=== PATIENT | male | born 1985 | race Caucasian/White ===

== ENCOUNTER 2016-12-23 00:56 | Emergency (ER) | payer OTHER ==
[2016-12-23] MEDS ORDERED: NORMAL SALINE 1000 ML 1,000 ML IV ONE (02:27)
--- NOTE | 2016-12-23 02:35 | ER Document Report ---
ED General - General Chief Complaint: Dizziness Stated Complaint: NECK PAIN Time Seen by Provider: 12/23/16 02:10 Notes: Patient is a 31-year-old male who presents with complaint of a myriad of symptoms. They have all started last 2 days. He says he has had some gradual intermittent headaches. They are not severe. He then has also had sensation of dry mouth and is felt numbness and tingling into both his hands. He says a little bit worse on the left versus the right. He is also noticed a pinpoint area on the left anterior neck where he is having pain. He says is only in the single area. He denies any recent neck trauma. He does drink alcohol on a daily basis but says he drinks just a few beers. He does not smoke but he does chew tobacco. He does admit he has been under a lot of stress recently. No recent fevers or infections. No recent trauma to his head or neck. The only medication he takes is Adderall. He is otherwise healthy. No other complaints at this time. TRAVEL OUTSIDE OF THE [place] IN LAST 30 DAYS: No Past Medical History - Social History Smoking Status: Never Smoker Chew tobacco use (# tins/day): Yes Frequency of alcohol use: Occasional Drug Abuse: None Family History: Reviewed & Not Pertinent Patient has suicidal ideation: No Patient has homicidal ideation: No Renal/ Medical History: Denies: Hx Peritoneal Dialysis Review of Systems - Review of Systems Notes: My Normal Review Basic REVIEW OF SYSTEMS: CONSTITUTIONAL : Denies fever, chills, or sweats. Denies recent illness. EENT: Denies eye, ear, throat, or mouth pain or symptoms. Denies nasal or sinus congestion. CARDIOVASCULAR: Mild intermittent RESPIRATORY: Denies cough, cold, or chest congestion. Denies shortness of breath, difficulty breathing, or wheezing. GASTROINTESTINAL: Denies abdominal pain. Denies nausea, vomiting, or diarrhea. Denies constipation. Last BM: MUSCULOSKELETAL: Denies neck or back pain or joint pain or swelling. SKIN: Denies rash or skin lesions. NEUROLOGICAL: Denies altered mental status or loss of consciousness. Denies headache. Denies weakness or paralysis or loss of use of either side. Denies problems with gait or speech. tingling sensation in hands. PSYCHIATRIC: Complains of increased stress. ALL OTHER SYSTEMS REVIEWED AND NEGATIVE. Physical Exam - Vital signs Vitals: Temp Pulse Resp BP Pulse Ox 99.0 F 71 16 144/80 H 99 12/23/16 01:20 12/23/16 01:20 12/23/16 01:20 12/23/16 01:20 12/23/16 01:20 - Notes Notes: General Appearance: Well nourished, alert, cooperative, no acute distress, no obvious discomfort. Appearing. Vitals: reviewed, See vital signs table. Head: no swelling or tenderness to the head Eyes: PERRL, EOMI, Conjuctiva clear Mouth: No decreasd moisture Throat: No tonsillar inflammation, No airway obstruction, No lymphadenopathy Neck: Posterior neck tenderness palpation. Patient has a small area of tenderness over the left anterior neck that is pinpoint. There is no swelling or redness to this area. Lungs: No wheezing, No rales, No rhonci, No accessory muscle use, good air exchange bilaterally. Heart: Normal rate, Regular rythm, No murmur, no rub Abdomen: Normal BS, soft, No rigidity, No abdominal tenderness, No guarding, no rebound, no abdominal masses, no organomegaly Extremities: strength 5/5 in all extremities, good pulses in all extremities, no swelling or tenderness in the extremities, no edema. Skin: warm, dry, appropriate color, no rash Neuro: speech clear, oriented x 3, normal affect, responds appropriately to questions. Cranial nerves II through XII are intact. Distal sensation intact. Patient moves all extremities without difficulty. Normal gait. Normal Romberg. Course - Re-evaluation Re-evalutation: 12/23/16 07:04 Patient's history and exam suspect are most likely related to stress. He was adamant that he wanted imaging of his neck. He has a pinpoint area over the left anterior portion of his neck that hurts. It was near the carotid artery. Performed a CT Kristi of his neck and this was negative. Patient looks well. His headache is mild and intermittent gradual onset. I do not suspect subarachnoid hemorrhage. Being that he has tingling sensation in his arms and hands as well as sensation of dry mouth and he admits she has been under a lot of stress recently think most the symptoms are related to his increasing stress load. I gave the patient a day off. I encouraged him to rest and take it easy. Encouraged him return to ER if he has worsening of his symptoms. Patient agrees with plan and will be discharged home. Patient's neurologic exam is completely normal. Dictation of this chart was performed using voice recognition software; therefore, there may be some unintended grammatical errors. - Vital Signs Vital signs: Temp Pulse Resp BP Pulse Ox 98.6 F 68 16 127/78 H 99 12/23/16 05:42 12/23/16 05:42 12/23/16 05:42 12/23/16 05:42 12/23/16 05:42 - Laboratory Result Diagrams: 12/23/16 02:55 12/23/16 02:55 Discharge - Discharge Clinical Impression: Neck pain, Paresthesias Headache Qualifiers: Headache type: unspecified Headache chronicity pattern: episodic headache Intractability: not intractable Qualified Code(s): R51 - Headache Condition: Good Disposition: HOME, SELF-CARE Additional Instructions: Your CT scan of your neck was normal. Please rest and relax over the next 24 hours. Please follow up with your doctor in 3-4 days for reevaluation. Please return to the ER immediately if you have worsening pain, fevers, vomiting, or feel that your symptoms are worsening. Forms: Return to Work Referrals: KALEIGH JOYCE MD [Primary Care Provider] - Follow up in 3-5 days
[2016-12-23 03:17] LABS: ABSOLUTE BASOPHILS # (AUTO) 0.1 10^3/uL (0.0-0.2); ABSOLUTE EOSINOPHILS # (AUTO) 0.3 10^3/uL (0.0-0.6); ABSOLUTE LYMPHOCYTES (AUTO) 2.2 10^3/uL (0.5-4.7); ABSOLUTE MONOCYTES (AUTO) 0.6 10^3/uL (0.1-1.4); ABSOLUTE NEUT (AUTO) 3.6 10^3/uL (1.7-8.2); EOSINOPHILS % (AUTO) 3.8 % (0-6); HEMATOCRIT 43.2 % (37.9-51.0); HEMOGLOBIN 14.9 g/dL (13.5-17.0); HGB HCT DIFFERENCE 1.5; LYMPHOCYTES % (AUTO) 32.1 % (13-45); MEAN CORPUSCULAR HEMOGLOBIN 31.3 pg (27.0-33.4); MEAN CORPUSCULAR HGB CONC 34.6 g/dL (32.0-36.0); MEAN CORPUSCULAR VOLUME 91 fl (80-97); MONOCYTES % (AUTO) 8.8 % (3-13); RED BLOOD COUNT 4.77 10^6/uL (4.35-5.55); RED CELL DISTRIBUTION WIDTH 13.4 % (11.5-14.0); SEGMENTED NEUTROPHILS % (AUTO) 54.3 % (42-78); WHITE BLOOD COUNT 6.7 10^3/uL (4.0-10.5)
[2016-12-23 03:32] LABS: ANION GAP 12 (5-19); BLOOD UREA NITROGEN 13 mg/dL (7-20); CALCIUM 9.9 mg/dL (8.4-10.2); CARBON DIOXIDE 25 mmol/L (22-30); CHLORIDE 105 mmol/L (98-107); GLUCOSE 106 mg/dL (75-110); POTASSIUM 4.5 mmol/L (3.6-5.0); SODIUM 142.4 mmol/L (137-145)
--- NOTE | 2016-12-23 03:52 | RADIOLOGY REPORT (SQ) ---
EXAM DESCRIPTION: CTA NECK COMPLETED DATE/TIME: 12/23/2016 3:34 am REASON FOR STUDY: left anterior neck pain COMPARISON: None. TECHNIQUE: Axial dynamic scanning technique with dynamic contrast enhancement through the extra-ground crewman aircraft support nial carotid and vertebral arteries. Multiplanar reconstruction. 3-D MIPS and Volume-rendered imag es acquired at the workstation and saved to PACS. Images are reviewed in soft tissue, bone, lung w indows. All CT scanners at this facility use dose modulation, iterative reconstruction, and/or weight based d osing when appropriate to reduce radiation dose to as low as reasonably achievable (ALARA). [facility]: Dose Right [facility]: CareDose [facility]: Dose Right [facility]: Teradose 4D [facility]: Nexmo RADIATION DOSE: 499 CONTRAST TYPE AND DOSE: IV contrast RENAL FUNCTION: None required. The patient is less than 50 years old. LIMITATIONS: None. FINDINGS: AORTIC ARCH: Normal three-vessel origin. Bilateral subclavian arteries are patent. No d issection. RIGHT CAROTIDS: Patent common, internal and external carotid arteries without suggestion of significa nt stenosis or irregular plaque. No dissection. RIGHT VERTEBRAL: Patent. No dissection. LEFT CAROTIDS: Patent common, internal and external carotid arteries without suggestion of significan t stenosis or irregular plaque. No dissection. LEFT VERTEBRAL: Patent. No dissection. OTHER: No other significant finding. OTHER: 3-D reconstructions confirm findings. IMPRESSION: NORMAL CTA OF THE EXTRA-CRANIAL CAROTID AND VERTEBRAL ARTERIES. COMMENT: Quality ID #[id number]: Measurements of distal internal carotid diameter were used as the denomina tor for stenosis measurement. TECHNICAL DOCUMENTATION: JOB ID: [id number] Quality ID # [id number]: Final reports with documentation of one or more dose reduction techniques (e.g., Au tomated exposure control, adjustment of the mA and/or kV according to patient size, use of iterative reconstruction technique) 2010 [employer]- All Rights Reserved
[2016-12-23 06:59] VITALS: BP 127/78
--- NOTE | 2016-12-23 08:25 | EKG REPORT ---
SEVERITY:- NORMAL ECG - SINUS RHYTHM : Confirmed by: Dru Gordon MD 23-Dec-2016 08:24:19
== END 2016-12-23 05:42 | disposition home or self-care (01) ==
LOC: ER 00:56
DX: M54.2 Cervicalgia (principal); R51 Headache; R20.2 Paresthesia of skin; R20.0 Anesthesia of skin; Z72.0 Tobacco use; Z79.899 Other long term (current) drug therapy
CPT/HCPCS: 93005; 99284; 36415; 85025; 80048; 70498; 93010; J7030